=== PATIENT | male | born 1960 | race Caucasian/White ===

== ENCOUNTER 2018-06-30 07:28 | Inpatient (IN) | payer BC, OTHER ==
[2018-06-30] MEDS ORDERED: CEFAZOLIN 1 GM INJ IV (08:00)
[2018-06-30] MEDS ORDERED: ACETAMINOPHEN 500 MG TAB PO (08:00)
[2018-06-30] MEDS ORDERED: DIPHENHYDRAMINE 25 MG CAP PO (08:00)
[2018-06-30] MEDS: SENNA/DOCUSATE NA (8.6MG/50MG) TAB PO ×2 (09:00→20:32)
[2018-06-30] MEDS ORDERED: SEVOFLURANE 15 MIN (10:00)
[2018-06-30] MEDS: CEFAZOLIN 1 GM/50 ML (PMX) 50 ML IVPB ×2 (10:00→17:47)
[2018-06-30] MEDS ORDERED: CEFAZOLIN 1 GM INJ (10:14)
[2018-06-30] MEDS ORDERED: PROPOFOL 20 ML (10:14)
[2018-06-30] MEDS ORDERED: ROCURONIUM 50 MG INJ (10:14)
[2018-06-30] MEDS ORDERED: ROPIVACAINE 0.5 % 30 ML VIAL (10:15)
[2018-06-30] MEDS ORDERED: MIDAZOLAM 1 MG/ML 2 ML INJ ×2 (10:15)
[2018-06-30] MEDS ORDERED: HYDROmorphONE 2 MG/ML SYG (10:15)
[2018-06-30] MEDS ORDERED: ONDANSETRON 4 MG INJ (11:41)
[2018-06-30] MEDS ORDERED: METOCLOPRAMIDE 10 MG INJ (11:41)
[2018-06-30] MEDS ORDERED: KETOROLAC 30 MG INJ (11:41)
[2018-06-30] MEDS ORDERED: DEXAMETHASONE 4 MG/ML 1 ML INJ (11:41)
[2018-06-30] MEDS ORDERED: EPHEDrine 50 MG INJ (11:51)
[2018-06-30] MEDS: POLYMYXIN/BACITRACIN 1L IRRIG IRR (12:20)
[2018-06-30] MEDS ORDERED: BACITRACIN/POLYMYXIN 28.35 GM OINT TOP (12:37)
[2018-06-30] MEDS ORDERED: GLYCOPYRROLATE 0.4 MG INJ (12:53)
[2018-06-30] MEDS ORDERED: NEOSTIGMINE 3 MG/3 ML SYRINGE (12:53)
[2018-06-30] MEDS ORDERED: METOCLOPRAMIDE 10 MG INJ IV (13:30)
[2018-06-30] MEDS ORDERED: LABETALOL HCL 20MG INJ IV (13:30)
[2018-06-30] MEDS ORDERED: MEPERIDINE 25 MG INJ IV (13:30)
[2018-06-30] MEDS ORDERED: hydrALAzine 20 MG INJ IV (13:30)
[2018-06-30] MEDS ORDERED: ONDANSETRON 4 MG INJ IV (13:30)
[2018-06-30] MEDS ORDERED: HYDROmorphONE 1 MG/5 ML IV SYRINGE IV ×2 (13:30)
[2018-06-30] MEDS ORDERED: DIPHENHYDRAMINE 50 MG INJ IV (13:30)
[2018-06-30] MEDS ORDERED: FENTAnyl 50 MCG/ML VIAL IV ×3 (13:30)
[2018-06-30] MEDS ORDERED: OXYCODONE/ACETAMINOPHEN (5/325) TAB PO ×2 (13:30)
[2018-06-30] MEDS ORDERED: EPHEDrine SULFATE 50 MG/5 ML SYG IV (13:30)
[2018-07-01] MEDS: CEFAZOLIN 1 GM/50 ML (PMX) 50 ML IVPB ×3 (02:03→20:53)
[2018-07-01 05:40] LABS: ADD MAN DIFF? NO
[2018-07-01 05:50] LABS: BASOPHILS % 0.1 % (0.0-2.0); HEMATOCRIT 34.6 % (42.0-52.0); HEMOGLOBIN 11.9 g/dl (14.0-18.0); LYMPHOCYTES # 1.6 10^3/ul (0.8-2.9); LYMPHOCYTES % 15.7 % (15.0-51.0); MEAN CORPUSCULAR HEMOGLOBIN 31.3 pg (29.0-33.0); MEAN CORPUSCULAR HGB CONC 34.4 g/dl (32.0-37.0); MEAN CORPUSCULAR VOLUME 91.1 fl (82.0-101.0); MEAN PLATELET VOLUME 10.5 fl (7.4-10.4); MONOCYTE # 0.7 10^3/ul (0.3-0.9); MONOCYTES % 6.9 % (0.0-11.0); NEUTROPHIL # 7.7 10^3/ul (1.6-7.5); NEUTROPHILS % 76.9 % (39.0-77.0); PLATELET COUNT 163 10^3/UL (140-415)
[2018-07-01 06:19] LABS: CHOL/HDL RATIO 2.7 RATIO; CHOLESTEROL 110 mg/dl (100-200); HDL CHOLESTEROL 40 mg/dl (28-71); LDL CHOLESTEROL,CALCULATED 57 mg/dl; TRIGLYCERIDES 64 mg/dl (0-149)
[2018-07-01 06:19] LABS: PHOSPHORUS 4.7 mg/dl (2.5-4.9)
[2018-07-01 08:08] LABS: ANION GAP 13 (5-13); BLOOD UREA NITROGEN 22 mg/dl (7-20); CALCIUM 9.2 mg/dl (8.4-10.2); CARBON DIOXIDE 24 mmol/L (21-31); CHLORIDE 106 mmol/L (97-110); CREATININE 1.01 mg/dl (0.61-1.24); Estimated GFR > 60 mL/min (>60); GLUCOSE 129 mg/dl (70-220); POTASSIUM 4.5 mmol/L (3.5-5.1); SODIUM 143 mmol/L (135-144)
[2018-07-01] MEDS: MESALAMINE (SR) 250 MG CAP PO ×2 (09:00→20:56)
[2018-07-01] MEDS: ASPIRIN 81 MG TAB PO (09:05)
[2018-07-01] MEDS: ATORVASTATIN 20 MG TAB PO (09:06)
[2018-07-01] MEDS: HYDROmorphONE 0.5 MG/0.5 ML SYG IV ×3 (09:06→18:24)
[2018-07-01] MEDS: SENNA/DOCUSATE NA (8.6MG/50MG) TAB PO ×2 (09:09→18:29)
[2018-07-01] MEDS: oxyCODONE 5 MG TAB PO ×3 (10:14→21:20)
[2018-07-01] MEDS: ONDANSETRON 4 MG INJ IV ×2 (14:56→21:20)
[2018-07-01] MEDS: MAGNESIUM HYDROXIDE 30ML CUP PO (15:02)
[2018-07-01] MEDS: POLYETHYLENE GLYCOL 17 GM PACKET PO (20:54)
[2018-07-01] MEDS: ZOLPIDEM 5 MG TAB PO (21:20)
[2018-07-02] MEDS: HYDROmorphONE 0.5 MG/0.5 ML SYG IV ×4 (00:13→22:22)
[2018-07-02] MEDS: CEFAZOLIN 1 GM/50 ML (PMX) 50 ML IVPB (02:48)
[2018-07-02] MEDS: POLYETHYLENE GLYCOL 17 GM PACKET PO ×2 (08:08→21:06)
[2018-07-02] MEDS: ASPIRIN 81 MG TAB PO (08:08)
[2018-07-02] MEDS: MESALAMINE (SR) 250 MG CAP PO (08:09)
[2018-07-02] MEDS: ATORVASTATIN 20 MG TAB PO (08:09)
[2018-07-02] MEDS: SENNA/DOCUSATE NA (8.6MG/50MG) TAB PO ×2 (08:09→21:06)
[2018-07-02] MEDS: oxyCODONE 5 MG TAB PO ×3 (09:36→18:49)
[2018-07-02] MEDS: MAGNESIUM HYDROXIDE 30ML CUP PO (21:06)
[2018-07-02] MEDS: ALPRAZOLAM 0.5 MG TAB PO (21:06)
[2018-07-03] MEDS: ZOLPIDEM 5 MG TAB PO ×2 (01:28→23:25)
[2018-07-03] MEDS: oxyCODONE 5 MG TAB PO ×3 (05:24→21:13)
[2018-07-03] MEDS: ATORVASTATIN 20 MG TAB PO (09:39)
[2018-07-03] MEDS: POLYETHYLENE GLYCOL 17 GM PACKET PO ×2 (09:40→21:01)
[2018-07-03] MEDS: SENNA/DOCUSATE NA (8.6MG/50MG) TAB PO ×2 (09:40→21:01)
[2018-07-03] MEDS: ASPIRIN 81 MG TAB PO (09:40)
[2018-07-03] MEDS: HYDROmorphONE 0.5 MG/0.5 ML SYG IV ×2 (09:41→18:57)
[2018-07-03] MEDS: CHOLECALCIFEROL 1,000 UNIT TAB PO (20:59)
[2018-07-03] MEDS: MAGNESIUM HYDROXIDE 30ML CUP PO (21:00)
[2018-07-03] MEDS: ALPRAZOLAM 0.5 MG TAB PO (22:28)
[2018-07-04] MEDS: oxyCODONE 5 MG TAB PO ×2 (02:17→11:56)
[2018-07-04] MEDS: ALPRAZOLAM 0.5 MG TAB PO ×2 (05:57→14:53)
[2018-07-04] MEDS: POLYETHYLENE GLYCOL 17 GM PACKET PO (09:00)
[2018-07-04] MEDS: ATORVASTATIN 20 MG TAB PO (09:58)
[2018-07-04] MEDS: CHOLECALCIFEROL 1,000 UNIT TAB PO (09:58)
[2018-07-04] MEDS: ASPIRIN 81 MG TAB PO (09:58)
[2018-07-04] MEDS: SENNA/DOCUSATE NA (8.6MG/50MG) TAB PO (09:59)
== END 2018-07-04 16:35 | DRG 496 ==
LOC: SDS 07:28 → REC 07:59 → MS1 14:33
PROC: 0QW Lower Bones, Revision (ICD-10-PCS; principal; 2018-06-30 10:30)
PROC: 0QW Lower Bones, Revision (ICD-10-PCS; 2018-06-30 10:30)
DX: T84.84XA Pain due to internal orthopedic prosthetic devices, implants and grafts, initial encounter (principal); K51.90 Ulcerative colitis, unspecified, without complications; Y79.8 Miscellaneous orthopedic devices associated with adverse incidents, not elsewhere classified; M20.41 Other hammer toe(s) (acquired), right foot; E78.5 Hyperlipidemia, unspecified; D64.9 Anemia, unspecified
CPT/HCPCS: 73630; 80048; 80061; 82306; 83735; 84100; 85025; 88300; 97116; 97161; 97530; 99217

== ENCOUNTER 2019-02-23 07:38 | Inpatient (IN) | payer BC, OTHER ==
[2019-02-23] MEDS: LACTATED RINGER'S 1,000 ML IV (09:00)
[2019-02-23] MEDS ORDERED: MIDAZOLAM 1 MG/ML 2 ML INJ (09:54)
[2019-02-23] MEDS ORDERED: FENTAnyl 50 MCG/ML VIAL (09:54)
[2019-02-23] MEDS ORDERED: LIDOCAINE 2% (SDV) 5 ML INJ (10:04)
[2019-02-23] MEDS ORDERED: PROPOFOL 20 ML (10:04)
[2019-02-23] MEDS ORDERED: CEFAZOLIN 1 GM INJ (10:04)
[2019-02-23] MEDS: POLYMYXIN/BACITRACIN 1L IRRIG IRR (10:12)
[2019-02-23] MEDS ORDERED: ONDANSETRON 4 MG INJ (10:31)
[2019-02-23] MEDS ORDERED: DEXAMETHASONE 4 MG/ML 5 ML INJ (10:31)
[2019-02-23] MEDS: ROPIVACAINE 0.5 % 30 ML VIAL (10:49)
[2019-02-23] MEDS ORDERED: FAMOTIDINE 20 MG INJ (11:00)
[2019-02-23] MEDS ORDERED: KETOROLAC 30 MG INJ (11:00)
[2019-02-23] MEDS ORDERED: GLYCOPYRROLATE 0.4 MG INJ (11:00)
[2019-02-23] MEDS ORDERED: HYDROmorphONE 1 MG/5 ML IV SYRINGE IV ×2 (11:22→11:30)
[2019-02-23] MEDS ORDERED: OXYCODONE/ACETAMINOPHEN (5/325) TAB PO (11:30)
[2019-02-23] MEDS ORDERED: FENTAnyl 50 MCG/ML VIAL IV ×2 (11:30)
[2019-02-23] MEDS ORDERED: ONDANSETRON 4 MG INJ IV (11:30)
[2019-02-23] MEDS ORDERED: MEPERIDINE 25 MG INJ IV (11:30)
[2019-02-23] MEDS: HYDROmorphONE 1 MG/5 ML IV SYRINGE IV ×3 (11:50→13:23)
[2019-02-23] MEDS: ONDANSETRON 4 MG INJ IV ×2 (15:20→22:18)
[2019-02-23] MEDS: oxyCODONE 5 MG TAB PO ×2 (15:21→22:22)
[2019-02-23] MEDS: GABAPENTIN 300 MG CAP PO ×2 (17:22→21:58)
[2019-02-23] MEDS: CEFAZOLIN 1 GM/50 ML (PMX) 50 ML IVPB ×2 (18:08→23:54)
[2019-02-23] MEDS: HYDROmorphONE 1 MG/ML SYG IV (20:11)
[2019-02-24] MEDS: DIPHENHYDRAMINE 25 MG CAP PO (00:05)
[2019-02-24] MEDS: HYDROmorphONE 1 MG/ML SYG IV ×4 (04:01→19:47)
[2019-02-24] MEDS: ACETAMINOPHEN 325 MG TAB PO ×2 (05:12→11:13)
[2019-02-24] MEDS: CEFAZOLIN 1 GM/50 ML (PMX) 50 ML IVPB ×2 (05:12→13:24)
[2019-02-24] MEDS: LACTATED RINGER'S 1,000 ML IV (10:58)
[2019-02-24] MEDS: GABAPENTIN 300 MG CAP PO ×3 (10:59→20:56)
[2019-02-24] MEDS: SUMATRIPTAN 50 MG TAB PO (14:44)
[2019-02-24] MEDS: ONDANSETRON 4 MG INJ IV ×2 (14:45→21:23)
[2019-02-24] MEDS: oxyCODONE 5 MG TAB PO ×2 (16:13→21:23)
[2019-02-24] MEDS ORDERED: DOCUSATE SODIUM 100 MG CAP PO (17:30)
[2019-02-24] MEDS ORDERED: SENNA TAB PO (17:30)
[2019-02-24] MEDS ORDERED: MINERAL OIL 30ML CUP PO (17:30)
[2019-02-24] MEDS: IBUPROFEN 800 MG TAB PO (21:44)
[2019-02-25] MEDS: ONDANSETRON 4 MG INJ IV (02:08)
[2019-02-25] MEDS: oxyCODONE 5 MG TAB PO ×4 (02:11→20:17)
[2019-02-25] MEDS: DIPHENHYDRAMINE 25 MG CAP PO (02:11)
[2019-02-25] MEDS: GABAPENTIN 100 MG CAP PO ×3 (09:32→20:16)
[2019-02-25] MEDS: IBUPROFEN 800 MG TAB PO ×4 (09:32→23:03)
[2019-02-25] MEDS: HYDROmorphONE 1 MG/ML SYG IV ×2 (11:43→18:51)
[2019-02-25] MEDS: SUMATRIPTAN 50 MG TAB PO (23:03)
[2019-02-26] MEDS: DIPHENHYDRAMINE 25 MG CAP PO (01:59)
[2019-02-26] MEDS: oxyCODONE 5 MG TAB PO ×3 (01:59→17:14)
[2019-02-26] MEDS: HYDROmorphONE 1 MG/ML SYG IV ×2 (03:16→10:37)
[2019-02-26] MEDS: GABAPENTIN 100 MG CAP PO (08:52)
[2019-02-26] MEDS: IBUPROFEN 800 MG TAB PO ×3 (08:52→21:42)
[2019-02-26] MEDS: GABAPENTIN 300 MG CAP PO ×2 (13:24→21:42)
[2019-02-27] MEDS: GABAPENTIN 300 MG CAP PO ×2 (08:24→12:47)
[2019-02-27] MEDS: oxyCODONE 5 MG TAB PO ×2 (08:25→15:02)
[2019-02-27] MEDS: IBUPROFEN 800 MG TAB PO ×2 (08:25→12:47)
[2019-02-27] MEDS: ACETAMINOPHEN 325 MG TAB PO (12:14)
[2019-02-27] MEDS: SUMATRIPTAN 50 MG TAB PO (12:14)
== END 2019-02-27 20:20 | DRG 496 ==
LOC: SDS 07:38 → REC 13:16 → MS1 14:01
PROC: 0QPR04Z Removal of Internal Fixation Device from Left Toe Phalanx, Open Approach (ICD-10-PCS; principal; 2019-02-23 09:30)
PROC: 0SG Lower Joints, Fusion (ICD-10-PCS; 2019-02-23 09:30)
PROC: 0L8W3ZZ Division of Left Foot Tendon, Percutaneous Approach (ICD-10-PCS; 2019-02-23 09:30)
DX: T84.84XA Pain due to internal orthopedic prosthetic devices, implants and grafts, initial encounter (principal); K51.90 Ulcerative colitis, unspecified, without complications; M20.42 Other hammer toe(s) (acquired), left foot; M21.532 Acquired clawfoot, left foot; E78.5 Hyperlipidemia, unspecified; F32.9 Major depressive disorder, single episode, unspecified; Z87.820 Personal history of traumatic brain injury; Z87.891 Personal history of nicotine dependence; Y83.8 Other surgical procedures as the cause of abnormal reaction of the patient, or of later complication, without mention of misadventure at the time of the procedure
CPT/HCPCS: 73630-LT; 82306; 88300; 97110; 97116; 97163; 97167; 97530; 97535; 99217